=== PATIENT | male | born 1970 ===

== ENCOUNTER 2018-07-22 20:42 | Emergency (ER) | payer BC ==
[2018-07-22 21:01] VITALS: BP 128/85; PULSE 81; RESP 20; TEMP 98.4; O2SAT 97
[2018-07-22] MEDS ORDERED: Lidocaine 1% Inj (20ml) INFIL STA (21:18)
[2018-07-22] MEDS ORDERED: Lidocaine 2% MPF (5 ml) Inj ONE (21:22)
[2018-07-22] MEDS ORDERED: Bacitracin 500 Units/gm Oint Foilpak UD ONE (21:22)
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
== END 2018-07-22 21:59 | disposition home or self-care (01) ==
LOC: C.ER 20:42
DX: S51.812A Laceration without foreign body of left forearm, initial encounter (principal); W27.8XXA Contact with other nonpowered hand tool, initial encounter; Y92.9 Unspecified place or not applicable

== ENCOUNTER 2018-08-01 14:58 | Emergency (ER) | payer BC ==
[2018-08-01 15:08] VITALS: BP 101/68; PULSE 70; RESP 18; TEMP 98.3; O2SAT 99
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
== END 2018-08-01 15:32 | disposition home or self-care (01) ==
LOC: C.ER 14:58
DX: Z48.02 Encounter for removal of sutures (principal)